=== PATIENT | female | born 1950 | race African-American/Black ===

== ENCOUNTER 2018-11-12 05:07 | Inpatient (IN) ==
[2018-11-12] MEDS ORDERED: Sodium Chlor 0.9% Inj 500 ML IV.CONT ONE (05:30)
[2018-11-12] MEDS ORDERED: Chlorhexidine Gluconate 2% 1 Pack (2 Cloths) TOPICAL ONE (05:30)
[2018-11-12] MEDS ORDERED: Metoprolol Tartrate 25 MG Tablet PO ONE (05:30)
[2018-11-12] MEDS ORDERED: ceFAZolin 2 GM Premix Inj 2 GM/50 ML PIGGYBACK IV.SIG SCH (06:00)
[2018-11-12] MEDS ORDERED: Bupivacaine/Epinephrine Inj 0.25% 50 ML Vial ONE (06:57)
[2018-11-12] MEDS ORDERED: fentaNYL Citrate Inj 250 MCG/5 ML Ampul ONE (07:01)
[2018-11-12] MEDS ORDERED: Acetaminophen-HYDROcodone 325/7.5 Liq 15 ML UDC PO PRN (08:29)
[2018-11-12] MEDS ORDERED: diphenhydrAMINE HCl 12.5 MG/5 ML Elixir UDC PO PRN (08:29)
[2018-11-12] MEDS ORDERED: Post-op Orders (for Pharmacy) OTHER STA (08:29)
[2018-11-12] MEDS ORDERED: Morphine Inj 30 MG/30 ML PCA.VIAL PCA PRN (08:32)
[2018-11-12] MEDS ORDERED: Naloxone Inj 0.4 MG/ML Vial IV.PUSH PRN (08:32)
[2018-11-12] MEDS: KCL 20 mEq/D5W/NaCl 0.45% Inj 1,000 ML IV.CONT SCH ×2 (09:22→16:58)
[2018-11-12] MEDS ORDERED: *morphine SULFATE 4 MG/ML PERIprocedure ONLY ONE ×2 (09:23→09:34)
[2018-11-12] MEDS: Enoxaparin Inj 40 MG/0.4 ML Syringe SQ SCH (12:51)
[2018-11-12] MEDS: ceFAZolin Inj 1 GM in Sodium Chlor 0.9% Inj 100 ML IV.SIG SCH ×2 (17:00→22:36)
--- NOTE | 2018-11-12 21:31 | MP ---
cc: Winston Marie MD DATE OF OPERATION: 11/12/2018 PREOPERATIVE DIAGNOSIS: Morbid obesity with a BMI of 49, complicated by essential hypertension and hypercholesterolemia. POSTOPERATIVE DIAGNOSIS: Morbid obesity with a BMI of 49, complicated by essential hypertension and hypercholesterolemia. PROCEDURE PERFORMED: Laparoscopic vertical sleeve gastrectomy over a 36-[place] bougie ViSiGi bougie. SURGEON: Winston Marie MD. ANESTHESIA: General endotracheal anesthesia. ESTIMATED BLOOD LOSS: Less than 10 mL. FINDINGS: Fatty liver. SPECIMENS: None. COMPLICATIONS: None. PROCEDURE IN DETAIL: The patient was brought to the operating room and placed on the operating table in supine position, bilateral sequential inflation device placed on lower extremities. General anesthesia was instituted. Antibiotics was initiated. The abdomen was prepped and draped sterilely. A point 15 cm distal to the xiphoid in the midline was anesthetized with 0.25% Marcaine with epinephrine. A skin incision was made, 5-mm OptiView port placed under direct vision and pneumoperitoneum created. Under direct vision, three 5-mm left upper quadrant, a 15-mm right upper quadrant, 5-mm right upper quadrant ports placed. Prior to placement of all ports the skin and peritoneum were anesthetized with 0.25% Marcaine with epinephrine. The patient was placed in reverse Trendelenburg position left side up, the Shelly-Flex retractor was placed. The left lobe of the liver was retracted. The vasculature along the greater curvature of the stomach was using harmonic scalpel starting a distance 5-cm proximal to the pylorus and carried towards the angle of His. The angle of His was taken down bluntly. Posterior ligamentous attachments were sharply . A 36-[place] ViSiGi bougie was placed at the start of the case, was placed on suction. Division of the stomach started 5 cm proximal to the pylorus and carried towards the angle of His to completely excise approximately 80% of the stomach. This was performed using an [place] Flex stapler at the pylorus. The first firing was with a black load, followed by a green load and four gold loads. All staple loads were reinforced with SeamGuard. A distance of 2 cm was left from the angle incisura and the staple line and a distance of 1 cm left from the GE junction and the staple line. The pylorus was then occluded, methylene blue tinged saline was instilled. There was no evidence of extravasation. The gastrocolic ligament was then sutured to the posterior leaflet of the SeamGuard using a 2-0 Vicryl suture in a running manner. Bleeding points were controlled with Evicel. The excised stomach was removed from the peritoneal cavity through the 15-mm port site in an Endopouch. The fascia at the 15-mm port site was approximated with 0 Vicryl suture. The CO2 was then released, all ports were removed, all skin incisions closed with 4-0 Monocryl. The abdominal wall was cleaned. A sterile dressing was placed. The patient was awakened and taken to the recovery room. MD GILMA Reis/michelle , 08:54 PM , 08:57 PM
[2018-11-13] MEDS: KCL 20 mEq/D5W/NaCl 0.45% Inj 1,000 ML IV.CONT SCH ×2 (01:17→10:28)
[2018-11-13] MEDS: ceFAZolin Inj 1 GM in Sodium Chlor 0.9% Inj 100 ML IV.SIG SCH (06:02)
[2018-11-13] MEDS ORDERED: Atenolol 25 MG Tablet PO SCH (09:00)
[2018-11-13 09:30] LABS: Hemoglobin 11.8 gm/dL (11.6-15.3); Lymph # (Auto) 0.9 th/mm3 (1.0-4.8); Lymph % (Auto) 8.3 % (9.0-44.0); Mean Corpuscular HGB Conc 31.9 % (32.0-36.0); Mean Corpuscular Hemoglobin 22.8 pg (27.0-34.0); Mean Corpuscular Volume 71.4 fL (80.0-100.0); Mean Platelet Volume 9.9 fL (7.0-11.0); Mono # (Auto) 0.4 th/mm3 (0.0-0.9); Mono % (Auto) 3.9 % (0.0-8.0); Neut # (Auto) 9.3 th/mm3 (1.8-7.7); Neut % (Auto) 87.8 % (16.0-70.0); Platelet Count 180 th/mm3 (150-450); Red Blood Count 5.18 mil/mm3 (4.00-5.30); Red Cell Distribution Width 16.7 % (11.6-17.2); White Blood Count 10.5 th/mm3 (4.0-11.0)
[2018-11-13 10:08] LABS: Anion Gap 8 meq/L (5-15); Blood Urea Nitrogen 8 mg/dL (7-18); Calcium 8.4 mg/dL (8.5-10.1); Carbon Dioxide 28.2 meq/L (21.0-32.0); Chloride 109 meq/L (98-107); Glomerular Filtration Rate Greater Than 89 mL/min (>89); Glucose,Random 100 mg/dL (74-106); Potassium 4.2 meq/L (3.5-5.1); Sodium 145 meq/L (136-145)
--- NOTE | 2018-11-13 13:02 | P.PNGS ---
Subjective Patient reports: pain is less, tolerating liquids well, no flatus (Pt denies SOB , palpitations or chest pain. Ambulating without difficulty in halls, tolerating 60 ml clear liquid every 30 minutes.) Physical Exam Vital signs: Vital Signs 11/12/18 20:00 11/12/18 23:58 11/13/18 04:23 Temperature 97.5 F L 97.2 F L 97.5 F L Pulse Rate 53 L 52 L 53 L Respiratory Rate 17 16 17 Blood Pressure 121/56 L 124/65 145/65 H Pulse Oximetry 96 96 97 11/13/18 08:00 11/13/18 10:00 11/13/18 10:19 Temperature 97.7 F Pulse Rate 58 L 57 L Respiratory Rate 17 16 16 Blood Pressure 139/55 L 146/67 H Pulse Oximetry 98 11/13/18 12:00 Temperature 97.5 F L Pulse Rate 54 L Respiratory Rate 18 Blood Pressure 149/63 H Pulse Oximetry 96 Intake & Output 11/12/18 11/13/18 11/13/18 18:59 06:59 18:59 Intake Total 2450 / 2450 1520 / 1520 1100 / 1100 Output Total 10 10 1400 / 1400 Balance 2440 / 2440 120 / 120 1100 / 1100 Weight 123 kg 123 kg Intake: IV 1250 / 1250 1400 / 1400 1100 / 1100 D5W/1/2NS + KCL 20 mEq Inj 1, 1000 / 1000 1000 / 1000 1000 / 1000 000 ML @ 125 mls/hr IV.CONT . Q8H KRISTYN Rx#:[id number] Ofirmev Inj 1,000 mg In 100 ml 100 / 100 200 / 200 100 / 100 @ 400 mls/hr IV.SIG Q6H KRISTYN Rx# :[id number] Ancef 2 GM Premix Inj 2 gm In 50 / 50 50 ml @ 100 mls/hr IV.SIG ONCE KRISTYN Rx#:[id number] Ancef Inj 1 GM In NS Inj 100 ML 100 / 100 200 / 200 @ 200 mls/hr IV.SIG Q8H KRISTYN Rx #:[id number] Oral 200 / 200 120 / 120 Anesthesia Amount 1000 / 1000 Output: Urine 0 / 0 1400 / 1400 Estimated Blood Loss 10 Other: # Voids 0 1 Date of Last Bowel Movement 11/12/18 # Bowel Movements 0 Narrative: GENERAL: SKIN: Warm and dry. HEAD: Normocephalic. EYES: No scleral icterus. No injection or drainage. NECK: Supple, trachea midline. No JVD or lymphadenopathy. CARDIOVASCULAR: Regular rate and rhythm without murmurs, gallops, or rubs. RESPIRATORY: Breath sounds equal bilaterally. No accessory muscle use. GASTROINTESTINAL: Abdomen soft, normal post operative tenderness, laparoscopic sites WNL, mildly distended. MUSCULOSKELETAL: No cyanosis, or edema. BACK: Nontender without obvious deformity. No CVA tenderness. Results - Labs 11/13/18 08:05 11/13/18 08:05 Laboratory Results - last 24 hr 11/13/18 11/13/18 08:05 08:05 WBC 10.5 RBC 5.18 Hgb 11.8 Hct 37.0 MCV 71.4 L MCH 22.8 L MCHC 31.9 L RDW 16.7 Plt Count 180 MPV 9.9 Neut % (Auto) 87.8 H Lymph % (Auto) 8.3 L [place] % (Auto) 3.9 Eos % (Auto) 0.0 Baso % (Auto) 0.0 Neut # (Auto) 9.3 H Lymph # (Auto) 0.9 L [place] # (Auto) 0.4 Eos # (Auto) 0.0 Baso # (Auto) 0.0 WBC Differential . 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 Ambulate ad bria Continue SCD and IS D/C home this afternoon. Code Status: full Discussed Condition With: patient
[2018-11-13] MEDS: Enoxaparin Inj 40 MG/0.4 ML Syringe SQ SCH (14:29)
== END 2018-11-13 14:49 | disposition home or self-care (01) | DRG 621 ==
LOC: HSDI 05:07 → N07 12:10
PROVIDERS: ADMIT Surgery; ATTEND Surgery
CPT/HCPCS: 80048; 83735; 85025; 94150; J0131; J0690; J1650; J2270; J2405; J2765; J3010; J3480; J7120; J8501